=== PATIENT | female | born 1965 | race Caucasian/White ===

== ENCOUNTER → 2018-08-02 | Outpatient (REF) | payer OTHER ==
[~2018-08-02] MED LIST: FLEXERIL10 PO; MOTRIN6 PO; NEXIUM40 PO; No Historical Meds; PREDTAP PO; TYLENOL#3 PO; ZOCOR20 PO
== END ==
LOC: M SFHCCLAY 08:17
PROVIDERS: ATTEND Family Medicine
DX: R23.2 Flushing (principal)

== ENCOUNTER → 2018-08-28 | Outpatient (REF) | payer OTHER ==
[2018-08-28 11:34] LABS: ALBUMIN 3.8 GM/DL (3.2-5.2); BILIRUBIN,DIRECT 0.1 MG/DL (0.0-0.2); BILIRUBIN,TOTAL 0.4 MG/DL (0.2-1.0); TOTAL PROTEIN 6.9 GM/DL (6.4-8.2)
== END ==
LOC: M SFHCCLAY 08:21
PROVIDERS: ATTEND Family Medicine
DX: K76.89 Other specified diseases of liver (principal)

== ENCOUNTER → 2018-08-31 | Outpatient (CLI) | payer OTHER ==
--- NOTE | 2018-08-31 09:59 | REP ---
RIGHT UPPER QUADRANT ULTRASOUND: Real-time sonographic evaluation of the right upper quadrant is performed. The patient has had a prior cholecystectomy. There is no intrahepatic or extrahepatic biliary dilatation, common bile duct measuring 2 mm. The liver demonstrates heterogeneous somewhat coarsened echotexture. No mass is seen. Visualized pancreas is unremarkable, tail is not well see due to overlying bowel gas. Right kidney demonstrates no hydronephrosis with normal size 12.3 cm in length. There is no free fluid. IMPRESSION: Status post cholecystectomy. No biliary dilatation or free fluid. Heterogeneous coarsened echotexture of the liver. No evidence of mass seen on today's exam. A mass was seen in the left lobe of the liver on MRI 06/04/2009 which was compatible with focal nodular hyperplasia. Electronically Signed by Edson Foster MD 08/31/2018 11:43 A
== END ==
LOC: M RAD 08:08
PROVIDERS: ATTEND Family Medicine
DX: K76.89 Other specified diseases of liver (principal); Z90.49 Acquired absence of other specified parts of digestive tract

== ENCOUNTER → 2018-09-04 | Outpatient (CLI) | payer OTHER ==
[2018-09-04 13:51] LABS: FOLLICLE STIMULATING HORMONE 92.2 mIU/mL; FREE T4 1.02 NG/DL (0.76-1.46); LUTEINIZING HORMONE 59.8 mIU/mL; THYROID STIMULATING HORMONE 0.765 uIU/ML (0.358-3.740)
== END ==
LOC: M SMT 10:47
PROVIDERS: ATTEND Advanced Practice Midwife
DX: N95.1 Menopausal and female climacteric states (principal)

== ENCOUNTER → 2018-09-10 | Outpatient (CLI) | payer OTHER ==
--- NOTE | 2018-09-10 14:13 | REPMRS ---
Patient History The patient states she has not had a clinical breast exam in over a year. Family history of endometrial cancer at age 35 in mother, endometrial cancer at age 22 in maternal aunt. Patient states she had a left breast lumpectomy (Dr. Anthony) years ago that was benign Right breast bx benign w/marker Digital Mammo Screening Bilat: September 10, 2018 - Exam #: [id number] Bilateral CC and MLO view(s) were taken. Technologist: Trang Naranjo, Technologist Prior study comparison: July 13, 2010, bilateral mammogram performed at [facility]. November 02, 2007, bilateral screening mammogram, performed at [facility]. FINDINGS: The breast tissue is extremely dense which could obscure a lesion on mammography. There is a needle biopsy marker clip projecting in the left breast. There is an extremely dense symmetrical pattern of residual fibroglandular tissue. There has been no change in the appearance of the mammogram from the previous studies. There is no interval development of dominant mass, archetectural distortion, or microcalcific cluster suggestive of malignancy. 3-D tomosynthesis shows no additional findings. Assessment: BI-RADS/ACR category 2 mammogram. Benign Findings. Recommendation Routine screening mammogram of both breasts in 1 year (for women over age 40). This patient's Lifetime Breast Cancer RIsk is estimated at 8.6 %. This mammogram was interpreted with the aid of an FDA-approved computer-aided dectection system. Electronically Signed By: Kenji Garibay MD 09/10/18 [id number]
== END ==
LOC: M RAD 11:44
PROVIDERS: ATTEND Advanced Practice Midwife
DX: Z12.31 Encounter for screening mammogram for malignant neoplasm of breast (principal)

== ENCOUNTER → 2018-10-11 | Outpatient (CLI) | payer OTHER ==
--- NOTE | 2018-10-11 18:40 | REP ---
Clinical: Lower abdominal and pelvic pain. Technique: Transabdominal pelvic ultrasound followed by transvaginal examination for better evaluation of the endometrium and adnexa with color Doppler evaluation of the ovaries. Findings: Bladder is unremarkable and measures 9.0 x 8.2 x 6.6 cm . The patient is noted to be status post hysterectomy. No pelvic mass or fluid. Right ovary measures 3.0 x 1.8 x 2.3 cm ; R I = 0.42. Impression: 1. Evidence for prior hysterectomy and left oophorectomy without adnexal/pelvic mass or fluid. 2. Normal right ovary without evidence for torsion. Electronically Signed by Bebo Wood MD 10/11/2018 06:31 P
== END ==
LOC: M RAD 10:14
PROVIDERS: ATTEND Advanced Practice Midwife
DX: R10.30 Lower abdominal pain, unspecified (principal); Z90.79 Acquired absence of other genital organ(s)

== ENCOUNTER → 2018-10-26 | Outpatient (REF) | payer OTHER ==
[2018-10-26 18:42] LABS: BASO # 0.1 10^3/uL (0.0-0.2); BASO % 0.9 % (0.0-1.0); EOS # 0.1 10^3/uL (0.0-0.50); EOS % 0.8 % (0.0-3.0); HEMATOCRIT 43.4 % (36.0-47.0); HEMOGLOBIN 13.3 g/dl (12.0-15.5); LYMPH # 2.7 10^3/uL (1.5-4.5); MEAN CORPUSCULAR HEMOGLOBIN 26.7 pg (27.0-33.0); MEAN CORPUSCULAR HGB CONC 30.6 g/dl (32.0-36.5); MONO # 0.5 10^3/uL (0.0-0.8); MONO % 7.3 % (0.0-5.0); NEUTROPHILS # 3.1 10^3/uL (1.8-7.7); NEUTROPHILS % 47.5 % (36.0-66.0); PLATELET COUNT, AUTOMATED 220 10^3/uL (150-450); RED BLOOD COUNT 4.99 10^6/uL (4.00-5.40); WHITE BLOOD COUNT 6.5 10^3/uL (4.0-10.0)
[2018-10-26 19:06] LABS: ERYTHROCYTE SEDIMENTATION RATE 11 mm/hr (0-30)
== END ==
LOC: M LABDRAWC 16:15
PROVIDERS: ATTEND Internal Medicine Cardiovascular Disease
DX: I38 Endocarditis, valve unspecified (principal); R94.31 Abnormal electrocardiogram [ECG] [EKG]

== ENCOUNTER → 2018-11-05 | Outpatient (REF) | payer OTHER ==
[2018-11-05 17:17] LABS: BLOOD UREA NITROGEN 16 MG/DL (7-18); CALCIUM LEVEL 8.8 MG/DL (8.5-10.1); CARBON DIOXIDE LEVEL 27 MEQ/L (21-32); CHLORIDE LEVEL 105 MEQ/L (98-107); CREATININE FOR GFR 0.73 MG/DL (0.55-1.30); GLOMERULAR FILTRATION RATE > 60.0 (>51); GLUCOSE, FASTING 87 MG/DL (70-100); POTASSIUM SERUM 4.2 MEQ/L (3.5-5.1); SODIUM LEVEL 138 MEQ/L (136-145)
== END ==
LOC: M LABDRAWC 16:11
PROVIDERS: ATTEND Internal Medicine Cardiovascular Disease
DX: I10 Essential (primary) hypertension (principal); I06.9 Rheumatic aortic valve disease, unspecified

== ENCOUNTER 2023-12-21 17:12 | Emergency (ER) | payer OTHER, SELFPAY ==
[~2023-12-21] VITALS: Ht 154.9 cm; Wt 75.1 kg
[2023-12-21 20:18] VITALS: BP 170/89; TEMP 98.4; O2SAT 98
== END 2023-12-21 21:48 | disposition left against medical advice (07) ==
LOC: M ED 17:12
DX: Z53.21 Procedure and treatment not carried out due to patient leaving prior to being seen by health care provider (principal)

== ENCOUNTER 2024-11-20 07:53 | Emergency (ER) | payer BC, SELFPAY ==
[~2024-11-20] VITALS: Ht 154.9 cm; Wt 79.4 kg
[2024-11-20] MEDS: INDOMETHACIN 25 MG CAP PO ONE (11:31)
[2024-11-20 11:42] LABS: BASO # 0.1 10^3/uL (0.0-0.2); BASO % 0.5 % (0.0-1.0); EOS # 0.1 10^3/uL (0.0-0.5); EOS % 0.5 % (0.0-3.0); HEMATOCRIT 35.2 % (36.0-47.0); HEMOGLOBIN 10.3 g/dl (12.0-15.5); LYMPH # 2.8 10^3/uL (1.5-5.0); LYMPH % 25.1 % (24.0-44.0); MEAN CORPUSCULAR HEMOGLOBIN 20.8 pg (27.0-33.0); MEAN CORPUSCULAR HGB CONC 29.3 g/dl (32.0-36.5); MONO # 0.6 10^3/uL (0.0-0.8); MONO % 5.4 % (2.0-8.0); NEUTROPHILS # 7.4 10^3/uL (1.5-8.5); PLATELET COUNT, AUTOMATED 288 10^3/uL (150-450); RED BLOOD COUNT 4.96 10^6/uL (4.00-5.40)
[2024-11-20 11:57] LABS: ERYTHROCYTE SEDIMENTATION RATE 58 mm/hr (0-30)
[2024-11-20 12:07] LABS: URIC ACID 3.4 MG/DL (3.1-7.8)
[2024-11-20 12:11] LABS: BLOOD UREA NITROGEN 14 MG/DL (9-23); CALCIUM LEVEL 8.6 MG/DL (8.5-10.1); CARBON DIOXIDE LEVEL 27 MMOL/L (20-31); CHLORIDE LEVEL 104 MMOL/L (98-107); CREATININE FOR GFR 0.56 MG/DL (0.55-1.30); GLOMERULAR FILTRATION RATE > 90.0 (>51); GLUCOSE, FASTING 89 MG/DL (60-100); POTASSIUM SERUM 3.9 MMOL/L (3.5-5.1); SODIUM LEVEL 136 MMOL/L (136-145)
[2024-11-20] MEDS ORDERED: INDO50CA91 PO (12:45)
[2024-11-20] MEDS: ONDANSETRON 4MG ORAL DISINTEGRATING TAB PO ONE (12:53)
[2024-11-20 12:54] VITALS: BP 186/83; TEMP 98.3; O2SAT 99
== END 2024-11-20 12:58 | disposition home or self-care (01) ==
LOC: M ED 07:53
DX: M25.461 Effusion, right knee (principal); M67.834 Other specified disorders of tendon, left wrist; F17.210 Nicotine dependence, cigarettes, uncomplicated; Z88.0 Allergy status to penicillin; Z79.899 Other long term (current) drug therapy

== ENCOUNTER → 2024-12-05 | Outpatient (CLI) | payer BC ==
[~2024-12-05] MED LIST changes: +INDO50CA91 PO
== END ==
LOC: M RAD 07:30
PROVIDERS: ATTEND Orthopaedic Surgery
DX: M23.91 Unspecified internal derangement of right knee (principal); M25.561 Pain in right knee

== ENCOUNTER → 2024-12-09 | Outpatient (CLI) | payer BC ==
[2024-12-09 16:11] LABS: BASO # 0.1 10^3/uL (0.0-0.2); BASO % 0.5 % (0.0-1.0); EOS # 0.1 10^3/uL (0.0-0.5); HEMATOCRIT 32.7 % (36.0-47.0); HEMOGLOBIN 9.6 g/dl (12.0-15.5); LYMPH # 2.4 10^3/uL (1.5-5.0); LYMPH % 26.4 % (24.0-44.0); MEAN CORPUSCULAR HEMOGLOBIN 20.8 pg (27.0-33.0); MEAN CORPUSCULAR HGB CONC 29.4 g/dl (32.0-36.5); MEAN CORPUSCULAR VOLUME 70.9 fl (80.0-96.0); MONO # 0.5 10^3/uL (0.0-0.8); MONO % 5.9 % (2.0-8.0); NEUTROPHILS % 65.9 % (36.0-66.0); PLATELET COUNT, AUTOMATED 328 10^3/uL (150-450); RED BLOOD COUNT 4.61 10^6/uL (4.00-5.40); WHITE BLOOD COUNT 9.1 10^3/uL (4.0-10.0)
[2024-12-09 16:16] LABS: ERYTHROCYTE SEDIMENTATION RATE 69 mm/hr (0-30)
[2024-12-09 16:21] LABS: INR 0.89; PROTHROMBIN TIME 12.3 SECONDS (12.5-14.5)
[2024-12-09 16:37] LABS: ALBUMIN 3.5 G/DL (3.2-5.2); ALKALINE PHOSPHATASE 160 U/L (35-104); ALT/SGPT 11 U/L (7.0-40); AST/SGOT 12 U/L (<34); BILIRUBIN,DIRECT < 0.1 MG/DL (<0.4); BILIRUBIN,TOTAL 0.2 MG/DL (0.3-1.2); BLOOD UREA NITROGEN 19 MG/DL (9-23); C REACTIVE PROTEIN QUANTITATIV 0.51 MG/DL (<1.0); CALCIUM LEVEL 9.2 MG/DL (8.5-10.1); CARBON DIOXIDE LEVEL 28 MMOL/L (20-31); CHLORIDE LEVEL 106 MMOL/L (98-107); CREATININE FOR GFR 0.62 MG/DL (0.55-1.30); GLOMERULAR FILTRATION RATE > 90.0 (>51); GLUCOSE, FASTING 87 MG/DL (60-100); POTASSIUM SERUM 4.4 MMOL/L (3.5-5.1); SODIUM LEVEL 141 MMOL/L (136-145); TOTAL PROTEIN 7.2 G/DL (5.7-8.2)
[2024-12-09 16:43] LABS: PROCALCITONIN <0.04 ng/ml
[2024-12-09 18:06] LABS: CRYSTALS, BODY FLUID NONE SEEN (NONE SEEN); SOURCE, BODY FLUID CRYSTALS RT KNEE
[2024-12-09 18:36] LABS: SOURCE, BODY FLUID RT KNEE
[2024-12-09 18:37] LABS: SYNOVIAL FLUID COLOR YELLOW (COLORLESS)
== END ==
LOC: M LAB 15:01
PROVIDERS: ATTEND Orthopaedic Surgery
DX: M25.462 Effusion, left knee (principal)

== ENCOUNTER 2024-12-11 16:15 | Observation (INO) | payer BC ==
[~2024-12-11] VITALS: Ht 154.9 cm; Wt 80.2 kg
[2024-12-11] MEDS ORDERED: TRAM50TA2 PO (16:22)
[2024-12-11 20:32] LABS: BASO # 0.1 10^3/uL (0.0-0.2); BASO % 0.7 % (0.0-1.0); EOS # 0.1 10^3/uL (0.0-0.5); HEMATOCRIT 33.2 % (36.0-47.0); HEMOGLOBIN 9.7 g/dl (12.0-15.5); LYMPH # 2.8 10^3/uL (1.5-5.0); LYMPH % 31.6 % (24.0-44.0); MEAN CORPUSCULAR HEMOGLOBIN 20.4 pg (27.0-33.0); MEAN CORPUSCULAR HGB CONC 29.2 g/dl (32.0-36.5); MEAN CORPUSCULAR VOLUME 69.7 fl (80.0-96.0); MONO # 0.6 10^3/uL (0.0-0.8); MONO % 6.5 % (2.0-8.0); NEUTROPHILS # 5.2 10^3/uL (1.5-8.5); NEUTROPHILS % 59.9 % (36.0-66.0); PLATELET COUNT, AUTOMATED 314 10^3/uL (150-450); RED BLOOD COUNT 4.76 10^6/uL (4.00-5.40); WHITE BLOOD COUNT 8.8 10^3/uL (4.0-10.0)
[2024-12-11 20:53] LABS: ERYTHROCYTE SEDIMENTATION RATE 71 mm/hr (0-30)
[2024-12-11 21:06] LABS: C REACTIVE PROTEIN QUANTITATIV < 0.50 MG/DL (<1.0)
[2024-12-11 21:12] LABS: PROCALCITONIN <0.04 ng/ml
[2024-12-11 21:16] LABS: BLOOD UREA NITROGEN 24 MG/DL (9-23); CALCIUM LEVEL 8.9 MG/DL (8.5-10.1); CARBON DIOXIDE LEVEL 26 MMOL/L (20-31); CHLORIDE LEVEL 107 MMOL/L (98-107); CREATININE FOR GFR 0.67 MG/DL (0.55-1.30); GLOMERULAR FILTRATION RATE > 90.0 (>51); GLUCOSE, FASTING 95 MG/DL (60-100); POTASSIUM SERUM 5.3 MMOL/L (3.5-5.1); SODIUM LEVEL 141 MMOL/L (136-145); URIC ACID 3.6 MG/DL (3.1-7.8)
[2024-12-11] MEDS ORDERED: HOME MED LIST COMPLETE! XX SCH (21:35)
[2024-12-11] MEDS ORDERED: VANCOMYCIN HCL 1,500 MG, VIAL MATE ADAPTER 1 EACH in NS 500 ML IV ONE (22:00)
[2024-12-11] MEDS: ONDANSETRON 4MG 2ML VIAL IV ONE (23:43)
[2024-12-11] MEDS: KETOROLAC 30 MG/ML 1ML VIAL IV ONE (23:44)
[2024-12-12 00:15] VITALS: BP 162/78; TEMP 97.3; O2SAT 97
[2024-12-12 04:00] VITALS: BP 123/60; TEMP 97.2; O2SAT 95
[2024-12-12 05:05] LABS: HEMATOCRIT 30.1 % (36.0-47.0); MEAN CORPUSCULAR HEMOGLOBIN 20.8 pg (27.0-33.0); MEAN CORPUSCULAR HGB CONC 29.9 g/dl (32.0-36.5); MEAN CORPUSCULAR VOLUME 69.7 fl (80.0-96.0); PLATELET COUNT, AUTOMATED 257 10^3/uL (150-450); RED BLOOD COUNT 4.32 10^6/uL (4.00-5.40); WHITE BLOOD COUNT 8.6 10^3/uL (4.0-10.0)
[2024-12-12 06:00] LABS: MAGNESIUM LEVEL 2.2 MG/DL (1.8-2.4)
[2024-12-12 06:49] LABS: ALBUMIN 3.1 G/DL (3.2-5.2); ALKALINE PHOSPHATASE 135 U/L (35-104); ALT/SGPT 11 U/L (7.0-40); AST/SGOT 13 U/L (<34); BILIRUBIN,TOTAL 0.3 MG/DL (0.3-1.2); TOTAL PROTEIN 6.2 G/DL (5.7-8.2)
[2024-12-12 07:38] LABS: BLOOD UREA NITROGEN 22 MG/DL (9-23); CALCIUM LEVEL 8.5 MG/DL (8.5-10.1); CARBON DIOXIDE LEVEL 27 MMOL/L (20-31); CHLORIDE LEVEL 108 MMOL/L (98-107); CREATININE FOR GFR 0.64 MG/DL (0.55-1.30); GLOMERULAR FILTRATION RATE > 90.0 (>51); GLUCOSE, FASTING 63 MG/DL (60-100); POTASSIUM SERUM 3.9 MMOL/L (3.5-5.1); SODIUM LEVEL 141 MMOL/L (136-145)
[2024-12-12] MEDS: ENOXAPARIN 40MG/0.4ML SYRINGE (J1650 PER 10MG) SC SCH (09:00)
[2024-12-12] MEDS: DOXYCYCLINE HYCLATE 100MG TABLET PO SCH (09:25)
[2024-12-12 09:44] LABS: URIC ACID 4.3 MG/DL (3.1-7.8)
[2024-12-12 09:47] LABS: C REACTIVE PROTEIN QUANTITATIV 0.52 MG/DL (<1.0)
[2024-12-12 12:00] VITALS: BP 132/66; TEMP 97; O2SAT 99
[2024-12-12 14:30] LABS: RHEUMATOID FACTOR QUANT 11.5 IU/ML (<14)
[2024-12-12] MEDS: ONDANSETRON 4MG TAB PO PRN (18:38)
[2024-12-12 19:52] VITALS: BP 134/69; TEMP 97.7; O2SAT 96
[2024-12-12] MEDS: IBUPROFEN 800 MG TAB PO PRN (21:42)
[2024-12-13 03:49] VITALS: BP 112/68; TEMP 96.8; O2SAT 96
[2024-12-13 07:49] LABS: BASO % 0.5 % (0.0-1.0); EOS # 0.1 10^3/uL (0.0-0.5); EOS % 1.3 % (0.0-3.0); HEMOGLOBIN 9.4 g/dl (12.0-15.5); LYMPH # 2.2 10^3/uL (1.5-5.0); LYMPH % 27.4 % (24.0-44.0); MEAN CORPUSCULAR HEMOGLOBIN 20.7 pg (27.0-33.0); MEAN CORPUSCULAR HGB CONC 29.4 g/dl (32.0-36.5); MEAN CORPUSCULAR VOLUME 70.5 fl (80.0-96.0); MONO # 0.6 10^3/uL (0.0-0.8); MONO % 7.4 % (2.0-8.0); PLATELET COUNT, AUTOMATED 286 10^3/uL (150-450); RED BLOOD COUNT 4.54 10^6/uL (4.00-5.40)
[2024-12-13 08:12] LABS: BLOOD UREA NITROGEN 21 MG/DL (9-23); CALCIUM LEVEL 8.8 MG/DL (8.5-10.1); CARBON DIOXIDE LEVEL 26 MMOL/L (20-31); CHLORIDE LEVEL 110 MMOL/L (98-107); GLOMERULAR FILTRATION RATE > 90.0 (>51); GLUCOSE, FASTING 93 MG/DL (60-100); MAGNESIUM LEVEL 2.3 MG/DL (1.8-2.4); POTASSIUM SERUM 4.5 MMOL/L (3.5-5.1); SODIUM LEVEL 142 MMOL/L (136-145)
[2024-12-13 10:06] LABS: CPK CREATINE PHOSPHOKINASE 60 U/L (34-145)
[2024-12-13] MEDS ORDERED: IBUP80TA PO (10:57)
[2024-12-13] MEDS ORDERED: DOXY100T PO (10:57)
[2024-12-13] MEDS ORDERED: PRED10TA2 PO (10:57)
[2024-12-13] MEDS ORDERED: PANT40TA29 PO (10:57)
[2024-12-13 10:59] LABS: APPEARANCE, URINE HAZY (CLEAR); BACTERIA, URINE AUTO 1+ (NEGATIVE); BILIRUBIN, URINE AUTO NEGATIVE (NEGATIVE); BLOOD, URINE BLOOD NEGATIVE (NEGATIVE); COLOR, URINE YELLOW (YELLOW); GLUCOSE, URINE (UA) AUTO NEGATIVE (NEGATIVE); KETONE, URINE AUTO NEGATIVE (NEGATIVE); LEUKOCYTE ESTERASE, URINE AUTO NEGATIVE (NEGATIVE); MUCUS, URINE SMALL (NEGATIVE); NITRITE, URINE AUTO NEGATIVE (NEGATIVE); PROTEIN, URINE AUTO NEGATIVE (NEGATIVE); RBC, URINE AUTO 0 /HPF (0-3); SPECIFIC GRAVITY URINE AUTO 1.021 (1.002-1.035); SQUAMOUS EPITHELIAL CELL UR AU 1 /HPF (0-6); UROBILINOGEN, URINE AUTO 0.2 mg/dL (0.0-2.0); WBC, URINE AUTO 1 /HPF (0-3)
[2024-12-13 12:00] VITALS: BP 115/66; TEMP 97.3; O2SAT 99
[2024-12-13 12:40] LABS: GC DNA AMPLIFICATION NEGATIVE (NEGATIVE)
[2024-12-13] MEDS: LIDOCAINE 1% MDV 20ML VIAL SC SCH (14:40)
[2024-12-13 14:45] VITALS: TEMP 98.1
[2024-12-13 15:33] VITALS: BP 146/66; O2SAT 95
[2024-12-13 16:40] LABS: SOURCE, BODY FLUID GLUCOSE RT KNEE
[2024-12-13 16:49] LABS: SOURCE, BODY FLUID RT KNEE; SYNOVIAL FLUID COLOR YELLOW (COLORLESS)
[2024-12-13 16:57] LABS: CRYSTALS, BODY FLUID NONE SEEN (NONE SEEN); SOURCE, BODY FLUID CRYSTALS RT KNEE
[2024-12-13 17:25] LABS: SOURCE, BODY FLUID URIC ACID RT KNEE; URIC ACID, BODY FLUID 3.4 MG/DL (NOT ESTABLISHED)
[2024-12-16 11:57] LABS: ANA PATTERN Nuclear, Speckled (NEGATIVE); ANA SCREEN, IFA POSITIVE (NEGATIVE)
[2024-12-16 22:53] LABS: LYME TOTAL ANTIBODY CIA 4.08 Index (<=0.90)
[2024-12-17 18:07] LABS: LYME AB IGG BY CIA 8.71 Index (<=0.90); LYME AB IGM BY CIA 3.34 Index (<=0.90)
== END 2024-12-13 17:54 | disposition home or self-care (01) ==
LOC: M ED 16:15 → M ED INP 16:16 → M MSPAV 12-12 00:15
PROVIDERS: ADMIT Family Medicine; ATTEND Internal Medicine
DX: M25.461 Effusion, right knee (principal); I35.0 Nonrheumatic aortic (valve) stenosis; R16.0 Hepatomegaly, not elsewhere classified; I10 Essential (primary) hypertension; R01.1 Cardiac murmur, unspecified; D64.9 Anemia, unspecified; E87.5 Hyperkalemia; M23.91 Unspecified internal derangement of right knee; M62.89 Other specified disorders of muscle; R60.0 Localized edema; M25.561 Pain in right knee; M79.651 Pain in right thigh; R70.0 Elevated erythrocyte sedimentation rate; D72.829 Elevated white blood cell count, unspecified; R11.0 Nausea; M16.11 Unilateral primary osteoarthritis, right hip; F17.200 Nicotine dependence, unspecified, uncomplicated; Z90.79 Acquired absence of other genital organ(s); Z98.84 Bariatric surgery status; Z90.49 Acquired absence of other specified parts of digestive tract; Z90.89 Acquired absence of other organs; Z86.2 Personal history of diseases of the blood and blood-forming organs and certain disorders involving the immune mechanism; Z88.0 Allergy status to penicillin; Z79.899 Other long term (current) drug therapy
CPT/HCPCS: 20611; 36415; 73718; 76942; 80048; 80053; 81001; 82550; 82945; 83605; 83735; 84145; 84550; 84560; 85025; 85027; 85652; 86038; 86039; 86140; 86200; 86431; 86618; 87040; 87070; 87205; 87476; 87810; 87850; 89051; 89060; 93005; 93971; 96374; 96375; 99284; J1885; J2405

== ENCOUNTER → 2025-02-13 | Outpatient (CLI) | payer BC ==
[~2025-02-13] MED LIST changes: +DOXY100T PO; +FERR325T19 PO; +IBUP80TA PO; +LISI10TA24 PO; +PANT40TA29 PO; +PRED10TA2 PO; +TRAM50TA2 PO
[2025-02-13 17:34] LABS: CREATININE FOR GFR 0.68 MG/DL (0.55-1.30)
[2025-02-13 17:35] LABS: CALCIUM LEVEL 9.0 MG/DL (8.5-10.1); CARBON DIOXIDE LEVEL 27 MMOL/L (20-31); CHLORIDE LEVEL 108 MMOL/L (98-107); GLOMERULAR FILTRATION RATE > 90.0 (>51); POTASSIUM SERUM 4.2 MMOL/L (3.5-5.1); SODIUM LEVEL 144 MMOL/L (136-145)
== END ==
LOC: M LAB 13:00
PROVIDERS: ATTEND Student in an Organized Health Care Education/Training Program
DX: D50.9 Iron deficiency anemia, unspecified (principal); I10 Essential (primary) hypertension

== ENCOUNTER 2025-02-25 10:28 | Day surgery (SDC) | payer BC ==
[~2025-02-25] VITALS: Ht 154.9 cm; Wt 77.1 kg
[2025-02-25] MEDS: IPRATROPIUM 0.5 MG/ALBUTEROL 2.5 MG INH SOL UD 3 ML NEB STA (11:38)
[2025-02-25 13:16] VITALS: TEMP 98.2
[2025-02-25 13:45] VITALS: BP 154/68; O2SAT 99
== END 2025-02-25 13:49 | disposition home or self-care (01) ==
LOC: M OPP 10:28
PROVIDERS: ATTEND Surgery
DX: D12.8 Benign neoplasm of rectum (principal); D50.9 Iron deficiency anemia, unspecified; K44.9 Diaphragmatic hernia without obstruction or gangrene; Z98.84 Bariatric surgery status; K28.9 Gastrojejunal ulcer, unspecified as acute or chronic, without hemorrhage or perforation; Z88.0 Allergy status to penicillin; Z79.899 Other long term (current) drug therapy; F17.210 Nicotine dependence, cigarettes, uncomplicated

== ENCOUNTER → 2025-03-10 | Outpatient (CLI) | payer BC ==
[2025-03-10 14:08] LABS: BASO # 0.1 10^3/uL (0.0-0.2); BASO % 0.9 % (0.0-1.0); EOS # 0.0 10^3/uL (0.0-0.5); EOS % 0.4 % (0.0-3.0); LYMPH # 2.4 10^3/uL (1.5-5.0); LYMPH % 27.0 % (24.0-44.0); MONO # 0.4 10^3/uL (0.0-0.8); MONO % 4.7 % (2.0-8.0); NEUTROPHILS # 6.0 10^3/uL (1.5-8.5); NEUTROPHILS % 66.4 % (36.0-66.0); PLATELET COUNT, AUTOMATED 277 10^3/uL (150-450)
[2025-03-10 14:39] LABS: VITAMIN B12 LEVEL 296.0 PG/ML (211-911)
[2025-03-10 14:42] LABS: IRON (FE) 15.0 UG/DL (50-170); PERCENT SATURATION 3.5 % (13.2-45.0)
== END ==
LOC: M LAB 12:48
PROVIDERS: ATTEND Student in an Organized Health Care Education/Training Program
DX: D50.9 Iron deficiency anemia, unspecified (principal)

== ENCOUNTER 2025-03-13 11:11 | Outpatient (CLI) | payer BC ==
[~2025-03-13] VITALS: Ht 154.9 cm; Wt 77.0 kg
[~2025-03-13 11:11] MED LIST changes: +ALBUTEROL SULFATE 2.5 MG/0.5 ML INH CONCENTRATE NEB SOLN INH PRN; +EPINEPHrine INJ 1 MG/ML 1ML AMP IM PRN; +diphenhydrAMINE 50 MG/ML VIAL IV PRN
[2025-03-13 11:30] VITALS: BP 143/80; O2SAT 99
[2025-03-13] MEDS: IRON SUCROSE 200 MG IVP IV ONE (11:37)
[2025-03-13 12:33] VITALS: BP 128/64; O2SAT 98
== END 2025-03-13 12:35 ==
LOC: M INFU 11:11
PROVIDERS: ATTEND Student in an Organized Health Care Education/Training Program
DX: D50.9 Iron deficiency anemia, unspecified (principal); Z88.0 Allergy status to penicillin
CPT/HCPCS: 96374; J1756

== ENCOUNTER 2025-03-21 13:50 | Outpatient (CLI) | payer BC ==
[2025-03-21] MEDS: IRON SUCROSE 200MG IVP IV ONE (13:40)
[2025-03-21 14:20] VITALS: BP 152/72; O2SAT 98
== END 2025-03-21 14:20 | disposition home or self-care (01) ==
LOC: M INFU 13:50
PROVIDERS: ATTEND Student in an Organized Health Care Education/Training Program
DX: D50.9 Iron deficiency anemia, unspecified (principal); Z88.0 Allergy status to penicillin
CPT/HCPCS: 96374; J1756

== ENCOUNTER 2025-03-28 07:15 | Outpatient (CLI) | payer BC ==
[~2025-03-28] VITALS: Ht 154.9 cm; Wt 77.2 kg
[2025-03-28 07:25] VITALS: BP 179/91; O2SAT 99
[2025-03-28] MEDS: IRON SUCROSE 200MG IVP IV ONE (08:13)
[2025-03-28 08:35] VITALS: BP 174/81; O2SAT 98
== END 2025-03-28 08:35 | disposition home or self-care (01) ==
LOC: M INFU 07:15
PROVIDERS: ATTEND Student in an Organized Health Care Education/Training Program
DX: D50.9 Iron deficiency anemia, unspecified (principal); Z88.0 Allergy status to penicillin
CPT/HCPCS: 96374; J1756

== ENCOUNTER → 2025-04-17 | Outpatient (REF) | payer BC ==
[~2025-04-17] MED LIST changes: -ALBUTEROL SULFATE 2.5 MG/0.5 ML INH CONCENTRATE NEB SOLN INH PRN; -EPINEPHrine INJ 1 MG/ML 1ML AMP IM PRN; -diphenhydrAMINE 50 MG/ML VIAL IV PRN
[2025-04-17 18:53] LABS: TOTAL PROTEIN,RANDOM URINE 19.3 MG/DL (0.0-14.0)
[2025-04-17 18:59] LABS: APPEARANCE, URINE HAZY (CLEAR); BACTERIA, URINE AUTO 1+ (NEGATIVE); BILIRUBIN, URINE AUTO NEGATIVE (NEGATIVE); BLOOD, URINE BLOOD NEGATIVE (NEGATIVE); GLUCOSE, URINE (UA) AUTO NEGATIVE (NEGATIVE); KETONE, URINE AUTO TRACE mg/dL (NEGATIVE); LEUKOCYTE ESTERASE, URINE AUTO TRACE (NEGATIVE); MUCUS, URINE SMALL (NEGATIVE); NITRITE, URINE AUTO NEGATIVE (NEGATIVE); PROTEIN, URINE AUTO NEGATIVE (NEGATIVE); RBC, URINE AUTO 1 /HPF (0-3); SPECIFIC GRAVITY URINE AUTO 1.025 (1.002-1.035); SQUAMOUS EPITHELIAL CELL UR AU 7 /HPF (0-6); UROBILINOGEN, URINE AUTO 2.0 mg/dL (0.0-2.0); WBC, URINE AUTO 9 /HPF (0-3)
[2025-04-17 19:21] LABS: BASO # 0.1 10^3/uL (0.0-0.2); BASO % 0.7 % (0.0-1.0); EOS # 0.1 10^3/uL (0.0-0.5); EOS % 1.5 % (0.0-3.0); LYMPH # 3.1 10^3/uL (1.5-5.0); LYMPH % 41.3 % (24.0-44.0); MONO # 0.4 10^3/uL (0.0-0.8); MONO % 5.5 % (2.0-8.0); NEUTROPHILS # 3.8 10^3/uL (1.5-8.5); NEUTROPHILS % 50.6 % (36.0-66.0); PLATELET COUNT, AUTOMATED 221 10^3/uL (150-450)
[2025-04-17 19:29] LABS: ERYTHROCYTE SEDIMENTATION RATE 41 mm/hr (0-30)
[2025-04-17 19:37] LABS: C REACTIVE PROTEIN QUANTITATIV < 0.50 MG/DL (<1.0); MAGNESIUM LEVEL 2.4 MG/DL (1.8-2.4); PHOSPHORUS LEVEL 5.1 MG/DL (2.5-4.9)
[2025-04-17 19:39] LABS: COMPLEMENT C4 35.5 MG/DL (12-36)
[2025-04-17 19:40] LABS: TOTAL 25(OH) VITAMIN D 19.4 NG/ML (20.0-100.0)
== END ==
LOC: M SFHCRHEU 15:30
PROVIDERS: ATTEND Internal Medicine
DX: R76.8 Other specified abnormal immunological findings in serum (principal); M06.4 Inflammatory polyarthropathy; R53.83 Other fatigue

== ENCOUNTER → 2025-04-21 | Outpatient (CLI) | payer BC | LOC: M PLAIMG 10:30 | PROVIDERS: ATTEND Student in an Organized Health Care Education/Training Program | DX: I35.0 Nonrheumatic aortic (valve) stenosis (principal) ==

== ENCOUNTER → 2025-04-22 | Outpatient (CLI) | payer BC | LOC: M RAD 17:29 | PROVIDERS: ATTEND Internal Medicine | DX: M06.4 Inflammatory polyarthropathy (principal); R76.8 Other specified abnormal immunological findings in serum; R53.83 Other fatigue; Z53.9 Procedure and treatment not carried out, unspecified reason ==

== ENCOUNTER → 2025-04-23 | Outpatient (CLI) | payer BC ==
[2025-04-23 14:50] LABS: IRON (FE) 40.0 UG/DL (50-170); PERCENT SATURATION 10.7 % (13.2-45.0)
[2025-04-23 14:54] LABS: TOTAL 25(OH) VITAMIN D 8.3 NG/ML (20.0-100.0)
== END ==
LOC: M LAB 12:45
PROVIDERS: ATTEND Student in an Organized Health Care Education/Training Program
DX: D50.9 Iron deficiency anemia, unspecified (principal); Z98.84 Bariatric surgery status

== ENCOUNTER → 2025-04-23 | Outpatient (CLI) | payer BC | LOC: M RAD 12:31 | PROVIDERS: ATTEND Internal Medicine | DX: M06.4 Inflammatory polyarthropathy (principal); M16.0 Bilateral primary osteoarthritis of hip ==

== ENCOUNTER → 2025-05-15 | Outpatient (CLI) | payer BC ==
[~2025-05-15] MED LIST changes: +CEFU50TA PO; +ERGO500029 PO; +FAMO40TA3 PO
== END ==
LOC: M WHC 06:59
PROVIDERS: ATTEND Nurse Practitioner
DX: Z12.31 Encounter for screening mammogram for malignant neoplasm of breast (principal)

== ENCOUNTER → 2025-05-30 | Outpatient (CLI) | payer BC | LOC: M RAD 07:31 | PROVIDERS: ATTEND Nurse Practitioner | DX: R14.0 Abdominal distension (gaseous) (principal); R10.20 Pelvic and perineal pain unspecified side; Z90.710 Acquired absence of both cervix and uterus ==

== ENCOUNTER 2025-06-25 10:29 | Outpatient (CLI) | payer BC ==
[~2025-06-25] VITALS: Ht 154.9 cm; Wt 77.3 kg
[~2025-06-25 10:29] MED LIST changes: +ALBUTEROL SULFATE 2.5 MG/0.5 ML INH CONCENTRATE NEB SOLN INH PRN; +EPINEPHrine INJ 1 MG/ML 1ML AMP IM PRN; +diphenhydrAMINE 50 MG/ML VIAL IV PRN
[2025-06-25] MEDS: IRON SUCROSE 300 MG in NS 250 ML IV ONE (10:42)
[2025-06-25 10:49] VITALS: BP 108/60; O2SAT 100
[2025-06-25] MEDS ORDERED: ACETAMINOPHEN 650 MG PO ONE (11:00)
[2025-06-25 12:20] VITALS: BP 106/62; O2SAT 96
== END 2025-06-25 12:30 | disposition home or self-care (01) ==
LOC: M INFU 10:29
PROVIDERS: ATTEND Student in an Organized Health Care Education/Training Program
DX: D50.9 Iron deficiency anemia, unspecified (principal); Z88.0 Allergy status to penicillin
CPT/HCPCS: 96365; 96366; J1756

== ENCOUNTER 2025-07-02 08:32 | Outpatient (CLI) | payer BC ==
[~2025-07-02] VITALS: Ht 157.5 cm; Wt 77.3 kg
[2025-07-02 08:40] VITALS: BP 121/60; O2SAT 96
[2025-07-02] MEDS ORDERED: IRON SUCROSE 200MG IVP IV ONE (09:00)
[2025-07-02] MEDS ORDERED: ACETAMINOPHEN 650 MG PO ONE (09:00)
[2025-07-02] MEDS: IRON SUCROSE 300 MG in NS 250 ML IV ONE (09:25)
[2025-07-02 10:55] VITALS: BP 109/62; O2SAT 95
== END 2025-07-02 10:55 | disposition home or self-care (01) ==
LOC: M INFU 08:32
PROVIDERS: ATTEND Student in an Organized Health Care Education/Training Program
DX: D50.9 Iron deficiency anemia, unspecified (principal); Z88.0 Allergy status to penicillin
CPT/HCPCS: 96365; J1756